=== PATIENT | male | born 1940 | race Caucasian/White ===

== ENCOUNTER 2016-09-27 15:05 | Inpatient (IN) | payer OTHER, BC ==
[~2016-09-27] VITALS: Ht 172.7 cm; Wt 93.1 kg
[2016-09-27 15:59] LABS: EOSINOPHIL (%) 2.1 % (0-5); EOSINOPHIL COUNT 0.2 K/uL (0-0.3); HEMATOCRIT 41.4 % (38.0-50.0); IMMATURE GRANULOCYTE (%) 0.5 % (0.0-0.7); IMMATURE GRANULOCYTE COUNT 0.1 K/uL; INSTRUMENT ABS NEUTROPHIL CT 7.5 K/uL; LYMPHOCYTE COUNT 1.5 K/uL (1.0-2.8); MCH 29.5 PG (29.0-34.0); MCHC 33.1 G/DL (30.0-36.0); MCV 89.2 FL (86-99); MEAN PLAT.VOLUME 10.3 uM^3 (9.0-12.4); MONOCYTE (%) 9.5 % (3-12); NEUTROPHIL (%) 73.3 % (45-76); NEUTROPHIL COUNT 7.5 K/uL (1.8-6.4); PLATELET COUNT 130 K/uL (156-360); RBC DIS.WIDTH-CV 13.2 % (11.8-14.6); RBC DIS.WIDTH-SD 43.3 % (39-53); RED BLOOD COUNT 4.64 M/uL (4.00-5.50); WHITE BLOOD COUNT 10.2 K/uL (4.1-10.2)
[2016-09-27 16:08] LABS: INTER. NORMALIZED RATIO 1.1; PROTHROMBIN TIME 10.8 (9.2-11.2)
[2016-09-27 16:20] LABS: CHLORIDE 107 mEq/L (99-109); SODIUM 136 mEq/L (136-147)
[2016-09-27 16:22] LABS: GLUCOSE 108 mg/dL (70-99)
[2016-09-27 16:24] LABS: ANION GAP 12 MEQ/L (2-14); TOTAL BILIRUBIN 0.6 mg/dL (0.0-1.0)
[2016-09-27 16:26] LABS: ALKALINE PHOSPHATASE 88 IU/L (3-129)
[2016-09-27 16:27] LABS: UREA NITROGEN (BUN) 19 mg/dL (9-23)
[2016-09-27 16:29] LABS: GFR ESTIMATE (CALCULATED) > 59 mL/min/
[2016-09-27 16:34] LABS: TROP-I INTERPRETATION NEGATIVE; TROPONIN-I < 0.01 ng/mL (0.0-0.30)
[2016-09-27 17:57] LABS: BASE EXCESS -3.2 mEq/L (-3 to +3); BICARBONATE 19.5 mEq/L (22-26); CARBOXY HGB 1.6 % (0-5); COMMENTS - BLOOD GASES A+C+; DEVICE NC; METHEMOGLOBIN 1.1 % (0-1.5); O2 FLOW 3 L/MIN; PCO2 28 mm Hg (35-45); PO2 60 mm Hg (80-100); SITE LR; pH 7.45 (7.35-7.45)
[2016-09-27] MEDS ORDERED: CO Q-10100 MG PO (18:27)
[2016-09-27] MEDS ORDERED: MAGNESIUM250 MG PO (18:28)
[2016-09-27] MEDS ORDERED: CITRACAL + D C1 EACH PO (18:29)
[2016-09-27] MEDS ORDERED: VITAMIN D31000 UNI2 PO (18:29)
[2016-09-27] MEDS ORDERED: METFORMIN HCL500 M1 PO (18:30)
[2016-09-27] MEDS ORDERED: VITAMIN E400 UNIT PO (18:30)
[2016-09-27] MEDS ORDERED: PANTOPRAZOLE SO40 MG PO (18:31)
[2016-09-27] MEDS ORDERED: LOPRESSOR25 MG PO (18:35)
[2016-09-27] MEDS ORDERED: CLARITIN,ALAVAR10 MG PO (18:36)
[2016-09-27] MEDS ORDERED: ASPIR-LOW81 MG PO (18:36)
[2016-09-27] MEDS ORDERED: TYLENOL EXTRA500 MG PO (18:37)
[2016-09-27] MEDS ORDERED: OXYCODONE HCL5 MG PO (18:37)
[2016-09-27] MEDS ORDERED: FLONASE16 G1 BOTH NARES (18:38)
[2016-09-27] MEDS ORDERED: NITROSTAT0.4 MG SL (18:38)
[2016-09-27 20:56] LABS: INFLUENZA A VIRAL ANTIGEN NEGATIVE; INFLUENZA B VIRAL ANTIGEN NEGATIVE
[2016-09-27 21:01] VITALS: BP 127/73
[2016-09-27 22:19] LABS: POINT-OF-CARE METER ID UU13113831
[2016-09-27 22:21] LABS: TROP-I INTERPRETATION NEGATIVE; TROPONIN-I < 0.01 ng/mL (0.0-0.30)
[2016-09-28] VITALS (8 sets, daily range): BP systolic 103–145; BP diastolic 51–72
[2016-09-28 04:31] LABS: MCH 29.4 PG (29.0-34.0); MCHC 32.8 G/DL (30.0-36.0); MCV 89.7 FL (86-99); MEAN PLAT.VOLUME 11.6 uM^3 (9.0-12.4); PLATELET COUNT 145 K/uL (156-360); RBC DIS.WIDTH-CV 13.3 % (11.8-14.6); RBC DIS.WIDTH-SD 44.1 % (39-53); RED BLOOD COUNT 4.46 M/uL (4.00-5.50); WHITE BLOOD COUNT 10.2 K/uL (4.1-10.2)
[2016-09-28 04:44] LABS: CHLORIDE 103 mEq/L (99-109); POTASSIUM 4.1 mEq/L (3.7-5.4); SODIUM 135 mEq/L (136-147)
[2016-09-28 04:46] LABS: GLUCOSE 125 mg/dL (70-99)
[2016-09-28 04:47] LABS: ANION GAP 13 MEQ/L (2-14)
[2016-09-28 04:49] LABS: ALKALINE PHOSPHATASE 81 IU/L (3-129)
[2016-09-28 04:50] LABS: GFR ESTIMATE (CALCULATED) 57 mL/min/; TOTAL BILIRUBIN 1.1 mg/dL (0.0-1.0)
[2016-09-28 04:51] LABS: TROP-I INTERPRETATION NEGATIVE; TROPONIN-I 0.01 ng/mL (0.0-0.30); UREA NITROGEN (BUN) 22 mg/dL (9-23)
[2016-09-28 08:48] LABS: POINT-OF-CARE METER ID UU14162513
[2016-09-28 12:59] LABS: POINT-OF-CARE METER ID UU14162513
[2016-09-28 14:12] LABS: ANION GAP 8 MEQ/L (2-14); CHLORIDE 102 MEQ/L (99-109); GFR ESTIMATE (CALCULATED) 57 mL/min/; GLUCOSE 132 mg/dL (70-99); POTASSIUM 3.7 MEQ/L (3.7-5.4); SAMPLE HEMOLYSIS CHECK 0; SAMPLE ICTERIC CHECK 0; SAMPLE LIPEMIA CHECK 0; SODIUM 134 MEQ/L (136-147); UREA NITROGEN (BUN) 28 mg/dL (9-23)
[2016-09-28 17:23] LABS: POINT-OF-CARE METER ID UU13113831
[2016-09-28 21:32] LABS: POINT-OF-CARE METER ID UU14149397
[2016-09-29] VITALS (16 sets, daily range): BP systolic 92–149; BP diastolic 51–88
[2016-09-29 02:06] LABS: MAGNESIUM 2.1 mg/dL (1.3-2.7)
[2016-09-29 02:11] LABS: TROP-I INTERPRETATION NEGATIVE; TROPONIN-I 0.01 ng/mL (0.0-0.30)
[2016-09-29 07:16] LABS: EOSINOPHIL (%) 1.4 % (0-5); EOSINOPHIL COUNT 0.1 K/uL (0-0.3); HEMATOCRIT 37.7 % (38.0-50.0); IMMATURE GRANULOCYTE (%) 0.5 % (0.0-0.7); LYMPHOCYTE COUNT 2.2 K/uL (1.0-2.8); MCHC 32.9 G/DL (30.0-36.0); MCV 91.1 FL (86-99); MEAN PLAT.VOLUME 10.7 uM^3 (9.0-12.4); MONOCYTE (%) 13.2 % (3-12); MONOCYTE COUNT 1.1 K/uL (0-0.8); NEUTROPHIL (%) 58.8 % (45-76); PLATELET COUNT 158 K/uL (156-360); RBC DIS.WIDTH-CV 13.3 % (11.8-14.6); RBC DIS.WIDTH-SD 44.6 % (39-53); RED BLOOD COUNT 4.14 M/uL (4.00-5.50); WHITE BLOOD COUNT 8.5 K/uL (4.1-10.2)
[2016-09-29 07:36] LABS: ANION GAP 8 MEQ/L (2-14); CHLORIDE 107 MEQ/L (99-109); GFR ESTIMATE (CALCULATED) > 59 mL/min/; GLUCOSE 114 mg/dL (70-99); POTASSIUM 4.3 MEQ/L (3.7-5.4); SAMPLE HEMOLYSIS CHECK 0; SAMPLE ICTERIC CHECK 0; SAMPLE LIPEMIA CHECK 0; SODIUM 137 MEQ/L (136-147); UREA NITROGEN (BUN) 26 mg/dL (9-23)
[2016-09-29 10:45] LABS: ERTH.SED.RATE 31 MM/HR (0-20)
[2016-09-29 12:12] LABS: POINT-OF-CARE USER ID ENVKC36
[2016-09-29 16:21] LABS: POINT-OF-CARE USER ID ENVKC36
[2016-09-30 03:19] VITALS: BP 135/78
[2016-09-30 05:59] LABS: HEMATOCRIT 38.9 % (38.0-50.0); MCHC 32.6 G/DL (30.0-36.0); MCV 91.7 FL (86-99); MEAN PLAT.VOLUME 10.5 uM^3 (9.0-12.4); PLATELET COUNT 169 K/uL (156-360); RBC DIS.WIDTH-CV 13.3 % (11.8-14.6); RBC DIS.WIDTH-SD 44.6 % (39-53); RED BLOOD COUNT 4.24 M/uL (4.00-5.50); WHITE BLOOD COUNT 8.7 K/uL (4.1-10.2)
[2016-09-30 06:21] LABS: ANION GAP 9 MEQ/L (2-14); CHLORIDE 107 MEQ/L (99-109); GFR ESTIMATE (CALCULATED) > 59 mL/min/; GLUCOSE 112 mg/dL (70-99); POTASSIUM 4.4 MEQ/L (3.7-5.4); SAMPLE HEMOLYSIS CHECK 0; SAMPLE ICTERIC CHECK 0; SAMPLE LIPEMIA CHECK 0; SODIUM 138 MEQ/L (136-147); UREA NITROGEN (BUN) 21 mg/dL (9-23)
[2016-09-30] MEDS ORDERED: XARELTO20 MG PO (09:06)
[2016-09-30] MEDS ORDERED: LOPRESSOR50 MG PO (09:06)
[2016-09-30 09:19] VITALS: BP 147/76
[2016-09-30 11:24] LABS: POINT-OF-CARE METER ID UU13113781
== END 2016-09-30 13:09 | disposition home health service (06) | DRG 313 ==
LOC: EME 15:05 → EDOF 19:47 → 5WEST 19:47 → 3EAST 09-28 10:01 → 5WEST 09-28 10:01 → 4EAST 09-28 10:01 → 5WEST 09-28 10:01 → 4EAST 09-28 10:01 → 3EAST 09-28 18:21 → 4EAST 09-29 02:00
PROVIDERS: Emergency Medicine; Hospitalist; Internal Medicine; Physician Assistant Medical
PROC: 5A09357 Assistance with Respiratory Ventilation, Less than 24 Consecutive Hours, Continuous Positive Airway Pressure (ICD-10-PCS; principal; 2016-09-27)
DX: R07.9 Chest pain, unspecified (principal); D69.6 Thrombocytopenia, unspecified; E78.00 Pure hypercholesterolemia, unspecified; K21.9 Gastro-esophageal reflux disease without esophagitis; I10 Essential (primary) hypertension; E11.9 Type 2 diabetes mellitus without complications; Z79.4 Long term (current) use of insulin; I25.810 Atherosclerosis of coronary artery bypass graft(s) without angina pectoris; J81.1 Chronic pulmonary edema; R91.1 Solitary pulmonary nodule; Z95.1 Presence of aortocoronary bypass graft; M25.512 Pain in left shoulder; Z87.891 Personal history of nicotine dependence; G47.33 Obstructive sleep apnea (adult) (pediatric); I25.9 Chronic ischemic heart disease, unspecified; I48.91 Unspecified atrial fibrillation; Z88.6 Allergy status to analgesic agent; Z88.1 Allergy status to other antibiotic agents; R09.02 Hypoxemia; E87.2 Acidosis; G89.29 Other chronic pain; R60.9 Edema, unspecified; R07.81 Pleurodynia
CPT/HCPCS: 36600; 71010; 71275; 74174; 80048; 80048 91; 80053; 81003; 82803; 82948; 83605; 83735; 83880; 84100; 84484; 85025; 85027; 85610; 85651; 85730; 87502; 93005; 93306; 94010; 94640; 94660; 94799; 99202; 99281; 99285; G0378; J1160; J1644; J1815; J1885; J1940; J2270; J2405; J7030; J7050

== ENCOUNTER 2017-06-03 18:06 | Emergency (ER) | payer OTHER, BC ==
[~2017-06-03] VITALS: Ht 170.2 cm; Wt 93.7 kg
[~2017-06-03 18:06] MED LIST: ASPIR-LOW81 MG PO; CITRACAL + D C1 EACH PO; CLARITIN,ALAVAR10 MG PO; CO Q-10100 MG PO; FLONASE16 G1 BOTH NARES; LOPRESSOR25 MG PO; LOPRESSOR50 MG PO; MAGNESIUM250 MG PO; METFORMIN HCL500 M1 PO; NITROSTAT0.4 MG SL; OXYCODONE HCL5 MG PO; PANTOPRAZOLE SO40 MG PO; TYLENOL EXTRA500 MG PO; VITAMIN D31000 UNI2 PO; VITAMIN E400 UNIT PO; XARELTO20 MG PO
[2017-06-03 19:25] LABS: HEMATOCRIT 42.5 % (38.0-50.0); HEMOGLOBIN 14.8 G/DL (12.5-16.6); MCH 30.1 PG (29.0-34.0); MCHC 34.8 G/DL (30.0-36.0); MCV 86.6 FL (86-99); PLATELET COUNT 189 K/uL (156-360); RBC DIS.WIDTH-SD 38.2 % (39-53); RED BLOOD COUNT 4.91 M/uL (4.00-5.50); WHITE BLOOD COUNT 10.9 K/uL (4.1-10.2)
[2017-06-03 19:34] LABS: CHLORIDE 102 mEq/L (99-109); POTASSIUM 2.7 mEq/L (3.7-5.4); SODIUM 138 mEq/L (136-147)
[2017-06-03 19:36] LABS: GLUCOSE 126 mg/dL (70-99); TOTAL PROTEIN 7.4 g/dL (6.4-8.3)
[2017-06-03 19:38] LABS: TOTAL BILIRUBIN 0.7 mg/dL (0.0-1.0)
[2017-06-03 19:39] LABS: ALKALINE PHOSPHATASE 90 IU/L (3-129)
[2017-06-03 19:40] LABS: CREATININE 1.5 mg/dL (0.6-1.3); GFR ESTIMATE (CALCULATED) 48 mL/min/ (58.99-99999)
[2017-06-03 19:41] LABS: AST (GOT) 21 IU/L (2-34); UREA NITROGEN (BUN) 22 mg/dL (9-23)
[2017-06-03 19:42] LABS: ALT (GPT) 27 IU/L (3-49)
[2017-06-04] MEDS ORDERED: CIPRO500 MG PO (01:10)
[2017-06-04 01:49] VITALS: BP 150/93
== END 2017-06-04 01:50 | disposition home or self-care (01) ==
LOC: EME 18:06
DX: K80.50 Calculus of bile duct without cholangitis or cholecystitis without obstruction (principal); K57.32 Diverticulitis of large intestine without perforation or abscess without bleeding; E86.0 Dehydration; K21.9 Gastro-esophageal reflux disease without esophagitis; E11.9 Type 2 diabetes mellitus without complications; Z79.84 Long term (current) use of oral hypoglycemic drugs; Z79.82 Long term (current) use of aspirin; Z87.891 Personal history of nicotine dependence; Z95.1 Presence of aortocoronary bypass graft; Z85.46 Personal history of malignant neoplasm of prostate; Z90.49 Acquired absence of other specified parts of digestive tract; Z88.1 Allergy status to other antibiotic agents; Z88.6 Allergy status to analgesic agent; Z88.5 Allergy status to narcotic agent; Z88.8 Allergy status to other drugs, medicaments and biological substances
CPT/HCPCS: 74177; 80053; 81003; 85027; 87493; 99281; 99285; J7120

== ENCOUNTER 2017-10-05 11:23 | Observation (INO) | payer OTHER, BC ==
[~2017-10-05] VITALS: Ht 170.2 cm; Wt 96.9 kg
[~2017-10-05 11:23] MED LIST changes: +CIPRO500 MG PO
[2017-10-05 11:49] LABS: HEMATOCRIT 44.8 % (38.0-50.0); HEMOGLOBIN 15.7 G/DL (12.5-16.6); MCH 30.8 PG (29.0-34.0); MCV 87.8 FL (86-99); PLATELET COUNT 152 K/uL (156-360); RBC DIS.WIDTH-CV 12.3 % (11.8-14.6); RBC DIS.WIDTH-SD 39.8 % (39-53); WHITE BLOOD COUNT 8.9 K/uL (4.1-10.2)
[2017-10-05 11:57] LABS: CHLORIDE 108 mEq/L (99-109); POTASSIUM 3.8 mEq/L (3.7-5.4); SODIUM 138 mEq/L (136-147)
[2017-10-05 11:59] LABS: GLUCOSE 140 mg/dL (70-99)
[2017-10-05 12:03] LABS: CREATININE 1.2 mg/dL (0.6-1.3); GFR ESTIMATE (CALCULATED) > 59 mL/min/ (58.99-99999)
[2017-10-05 12:04] LABS: UREA NITROGEN (BUN) 29 mg/dL (9-23)
[2017-10-05 12:10] LABS: TROP-I INTERPRETATION NEGATIVE; TROPONIN-I < 0.01 ng/mL (0.0-0.30)
[2017-10-05] MEDS ORDERED: KETOCONAZOLE120 ML TP (13:54)
[2017-10-05] MEDS ORDERED: HYDROCHLOROTHIA25 MG PO (13:54)
[2017-10-05] MEDS ORDERED: LOPRESSOR50 MG PO (13:54)
[2017-10-05 15:45] VITALS: BP 110/61
[2017-10-05 18:17] LABS: TROP-I INTERPRETATION NEGATIVE; TROPONIN-I < 0.01 ng/mL (0.0-0.30)
[2017-10-05 20:00] VITALS: BP 108/58; BP 125/64; BP 131/65
[2017-10-05 23:44] VITALS: BP 117/65
[2017-10-06 01:15] LABS: TROP-I INTERPRETATION NEGATIVE; TROPONIN-I 0.02 ng/mL (0.0-0.30)
[2017-10-06 03:45] VITALS: BP 115/64
[2017-10-06 06:19] LABS: TROP-I INTERPRETATION NEGATIVE; TROPONIN-I < 0.01 ng/mL (0.0-0.30)
[2017-10-06 07:33] VITALS: BP 132/65
[2017-10-06 09:49] LABS: CHLORIDE 106 MEQ/L (99-109); CREATININE 1.1 MG/DL (0.6-1.3); GFR ESTIMATE (CALCULATED) > 59 mL/min/ (58.99-99999); GLUCOSE 135 mg/dL (70-99); POTASSIUM 3.9 MEQ/L (3.7-5.4); SODIUM 137 MEQ/L (136-147); UREA NITROGEN (BUN) 26 mg/dL (9-23)
[2017-10-06 12:35] VITALS: BP 129/71
[2017-10-06] MEDS ORDERED: ELIQUIS5 MG PO (14:53)
[2017-10-06] MEDS ORDERED: METOPROLOL TART75 MG PO (14:54)
[2017-10-06] MEDS ORDERED: LOPRESSOR50 MG PO (14:54)
== END 2017-10-06 16:13 | disposition home or self-care (01) ==
LOC: EME 11:23 → EDOF 12:30 → 4SOUTH 12:30 → ENRESERV 12:32 → CANRESERV 12:32 → ENRESERV 12:35 → 4SOUTH 15:35
PROVIDERS: Family Medicine; Internal Medicine Cardiovascular Disease
DX: R55 Syncope and collapse (principal); I48.0 Paroxysmal atrial fibrillation; I25.10 Atherosclerotic heart disease of native coronary artery without angina pectoris; Z95.1 Presence of aortocoronary bypass graft; I10 Essential (primary) hypertension; E11.9 Type 2 diabetes mellitus without complications; K21.9 Gastro-esophageal reflux disease without esophagitis; D69.6 Thrombocytopenia, unspecified; I95.9 Hypotension, unspecified; E78.5 Hyperlipidemia, unspecified; G47.33 Obstructive sleep apnea (adult) (pediatric); Z79.01 Long term (current) use of anticoagulants; Z79.82 Long term (current) use of aspirin; Z79.84 Long term (current) use of oral hypoglycemic drugs; Z87.891 Personal history of nicotine dependence; Z88.5 Allergy status to narcotic agent; Z88.1 Allergy status to other antibiotic agents; Z82.49 Family history of ischemic heart disease and other diseases of the circulatory system; Z80.41 Family history of malignant neoplasm of ovary; Z80.8 Family history of malignant neoplasm of other organs or systems
CPT/HCPCS: 71046; 80048; 82948; 84484; 85027; 93005; 99281; 99285; G0378